=== PATIENT | female | born 1975 | race Caucasian/White ===

== ENCOUNTER 2023-03-17 12:36 | Emergency (ER) | payer OTHER ==
[~2023-03-17] VITALS: Ht 157.5 cm; Wt 65.8 kg
[2023-03-17 12:41] VITALS: BP 123/70; PULSE 79; RESP 17; TEMP 97.4; O2SAT 99
[2023-03-17] MEDS ORDERED: IBUPROFEN 600 MG TAB PO ONE (14:25)
[2023-03-17] MEDS ORDERED: HYDROcodone/APAP 5/325 MG 1 TAB TAB PO ONE (14:25)
[2023-03-17] MEDS ORDERED: IBUPROFEN 600 MG TAB ONE (15:30)
[2023-03-17 16:00] VITALS: BP 123/70; PULSE 79; RESP 17; TEMP 97.4; O2SAT 99
[2023-03-17] MEDS ORDERED: IBUP-2213 PO (16:04)
[2023-03-17] MEDS ORDERED: CYCL-711 PO (16:04)
[2023-03-17] MEDS ORDERED: LID5T TP (16:04)
== END 2023-03-17 16:00 | disposition home or self-care (01) ==
LOC: MED 12:36
DX: S83.8X2A Sprain of other specified parts of left knee, initial encounter (principal); S39.012A Strain of muscle, fascia and tendon of lower back, initial encounter; R03.0 Elevated blood-pressure reading, without diagnosis of hypertension; Z79.899 Other long term (current) drug therapy; X58.XXXA Exposure to other specified factors, initial encounter; Y93.89 Activity, other specified; Y92.89 Other specified places as the place of occurrence of the external cause; Y99.8 Other external cause status
CPT/HCPCS: 29505; 72100; 73562; 99284